=== PATIENT | male | born 1985 | race Hispanic/Latino ===

== ENCOUNTER 2018-05-28 20:30 | Emergency (ER) | payer SELFPAY ==
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
== END 2018-05-28 22:22 | disposition home or self-care (01) ==
LOC: ED 20:30
CPT/HCPCS: 99282